=== PATIENT | female | born 1970 | race Caucasian/White ===

== ENCOUNTER → 2024-03-12 07:23 | Outpatient (REF) | payer OTHER, SELFPAY | LOC: HWWDC 07:23 | PROVIDERS: ATTENDING PHYSICIAN Obstetrics & Gynecology; FAMILY PHYSICIAN Internal Medicine | DX: Z12.31 Encounter for screening mammogram for malignant neoplasm of breast (principal) | CPT/HCPCS: 77063; 77067 ==

== ENCOUNTER → 2024-12-24 07:05 | Outpatient (REF) | payer OTHER, SELFPAY | LOC: HWRAD 07:05 | PROVIDERS: ATTENDING PHYSICIAN Hospitalist | DX: M25.561 Pain in right knee (principal); M25.562 Pain in left knee; M54.50 Low back pain, unspecified | CPT/HCPCS: 72100; 73560 ==